=== PATIENT | male | born 1990 | race Two or more races ===

== ENCOUNTER 2024-07-23 19:36 | Emergency (ER) | payer OTHER ==
[~2024-07-23] VITALS: Ht 180.3 cm; Wt 63.5 kg
[2024-07-23 20:05] VITALS: BP 133/87; O2SAT 99
[2024-07-23] MEDS ORDERED: CEFTRIAXONE SODIUM 1,000 MG VIAL IM ONE (20:30)
[2024-07-23] MEDS ORDERED: TETANUS & DIPHTHERIA TOX,ADULT 0.5 ML VIAL IM ONE (20:30)
== END 2024-07-23 20:51 | disposition home or self-care (01) ==
LOC: ER 19:38
DX: S61.432A Puncture wound without foreign body of left hand, initial encounter (principal); X58.XXXA Exposure to other specified factors, initial encounter; Y93.89 Activity, other specified; Y92.89 Other specified places as the place of occurrence of the external cause; Y99.8 Other external cause status
CPT/HCPCS: 90471; 90714; J1670